=== PATIENT | female | born 1965 | race Caucasian/White ===

== ENCOUNTER 2021-09-19 18:18 | Emergency (ER) | payer MEDICAID, OTHER ==
[~2021-09-19] VITALS: Ht 177.8 cm; Wt 127.0 kg
[2021-09-19 18:19] VITALS: BP 151/91
[2021-09-19] MEDS ORDERED: LIDOCAINE 1% HCL (LOCAL ANESTH.) INJ 20ML MDV IJ ONE (20:30)
[2021-09-19] MEDS ORDERED: BACITRACIN TOP OINT 1 UD PKG TOP ONE (20:45)
[2021-09-19] MEDS ORDERED: CEPH500C PO ×2 (20:54→21:38)
== END 2021-09-19 22:14 | disposition home or self-care (01) ==
LOC: ER 18:18
DX: S91.115A Laceration without foreign body of left lesser toe(s) without damage to nail, initial encounter (principal); Z79.899 Other long term (current) drug therapy; Z88.0 Allergy status to penicillin; Z88.2 Allergy status to sulfonamides; W01.0XXA Fall on same level from slipping, tripping and stumbling without subsequent striking against object, initial encounter; Y93.89 Activity, other specified; Y92.89 Other specified places as the place of occurrence of the external cause; Y99.8 Other external cause status
CPT/HCPCS: 12001; 73620; 99283; J2001